=== PATIENT | male | born 1990 | race Caucasian/White ===

== ENCOUNTER 2016-11-23 20:55 | Emergency (ER) | payer MEDICARE, MEDICAID ==
[~2016-11-23] VITALS: Ht 165.1 cm; Wt 50.3 kg
[2016-11-23 21:03] VITALS: BP 118/57
[2016-11-23] MEDS ORDERED: ONDANSETRON 2MG/ML, 2ML IVPush ONE (21:30)
[2016-11-23] MEDS ORDERED: SODIUM CHLORIDE 0.9% 1,000ML IVBOLUS ONE (21:30)
[2016-11-23 21:54] LABS: HEMATOCRIT 48.8 % (39.2-51.8); HEMOGLOBIN 16.2 g/dL (13.7-18.0); WHITE BLOOD COUNT 8.9 x10^3/uL (3.4-10)
[2016-11-23] MEDS ORDERED: ONDANSETRON 2MG/ML, 2ML ONE (22:06)
[2016-11-23 22:07] LABS: BLOOD UREA NITROGEN 15 mg/dL (7-18)
[2016-11-23 22:12] LABS: ASPARTATE AMINO TRANSFERASE 15 U/L (15-37)
== END 2016-11-23 23:27 | disposition home or self-care (01) ==
LOC: ED 23:05
DX: A09 Infectious gastroenteritis and colitis, unspecified (principal); F31.9 Bipolar disorder, unspecified
CPT/HCPCS: 36415; 80053; 81003; 83690; 85025; 96374; 96375; 99284; J2405; J7030